=== PATIENT | female | born 1990 | race American Indian/Alaskan Native ===

== ENCOUNTER 2021-09-15 07:35 | Outpatient (CLI) | payer MEDICAID ==
--- NOTE | 2021-09-15 08:55 | Cat Scan Report ---
CT ABDOMEN AND PELVIS WITHOUT CONTRAST HISTORY: HEMATURIA,GROSS R31.0 COMPARISON: None. TECHNIQUE: Axial CT images were obtained through the abdomen and pelvis without IV contrast. Sagittal and coronal reformatted images. All CT scans at this location are performed using CT dose reduction for ALARA by means of automated exposure control. FINDINGS: CT ABDOMEN: Lung Bases: Clear. Liver: No significant abnormality. Biliary: No significant abnormality. Spleen: No significant abnormality. Unenlarged. Pancreas: No significant abnormality. Adrenals: No significant abnormality. Kidneys: Both kidneys are normal size, contour and position. The renal pyramids are slightly hyperden se bilaterally. There appear to be a few scattered punctate renal calyceal stones in both kidneys. No evidence for ureteral stone or hydronephrosis. Ill-defined 1 cm cyst is suspected in the inferior ri ght kidney. No obvious renal mass on noncontrast CT. Lymphatics: No lymphadenopathy. Vasculature: No significant abnormality. Bowel/Peritoneum: No significant abnormality. No free air. No free fluid. CT PELVIS: : There is an ill-defined 1.6 cm hypodensity in the left ovary probably representing a cyst. The ut erus and adnexa are otherwise unremarkable. The bladder is poorly distended but no gross abnormality is detected. Osseous Structures: No significant abnormality. Additional Findings: None IMPRESSION: Punctate bilateral nonobstructing renal stones are identified. No ureteral stone or hydronephrosis. 1.6 cm left ovarian cyst. Signer Name: Jose J Diaz Jr, MD Signed: 09/15/2021 8:50 AM Workstation Name: [id number]
== END 2021-09-15 07:36 | disposition home or self-care (01) ==
LOC: CT 07:35
PROVIDERS: ATTEND Urology
DX: N20.0 Calculus of kidney (principal); N83.202 Unspecified ovarian cyst, left side; R31.0 Gross hematuria
CPT/HCPCS: 74176

== ENCOUNTER 2021-10-27 12:04 | Emergency (ER) | payer MEDICAID ==
[2021-10-27 12:27] VITALS: BP 131/72
[2021-10-27 20:02] LABS: Basophils % (Auto) 0.4 % (0.0-1.8); Eosinophils % (Auto) 0.6 % (0.0-4.3); Hematocrit 36.9 % (30.3-42.9); Hemoglobin 12.3 gm/dl (10.1-14.3); Lymphocytes # (Auto) 1.7 K/mm3 (1.2-5.4); Lymphocytes % (Auto) 24.9 % (13.4-35.0); Mean Corpuscular HGB Conc 33 % (30-34); Mean Corpuscular Volume 89 fl (79-97); Monocytes # (Auto) 0.6 K/mm3 (0.0-0.8); Monocytes % (Auto) 8.8 % (0.0-7.3); Platelet Count 216 K/mm3 (140-440); Red Blood Count 4.17 M/mm3 (3.65-5.03); Red Cell Distribution Width 12.8 % (13.2-15.2)
[2021-10-27 20:08] LABS: Bacteria,Urine 4+ /HPF (Negative); Mucus,Urine FEW /HPF
[2021-10-27 20:20] LABS: Blood Urea Nitrogen 5 mg/dL (7-17); Calcium 9.6 mg/dL (8.4-10.2); Hemolysis Index 5
[2021-10-27 20:21] LABS: Color,Urine Yellow (Yellow)
[2021-10-27 20:24] LABS: BUN/Creatinine Ratio 10
--- NOTE | 2021-10-27 21:12 | Emergency Department Report ---
ED Female HPI - General Chief complaint: Vaginal Bleeding Stated complaint: BLEEDING Time Seen by Provider: 10/27/21 21:02 Source: patient Mode of arrival: Ambulatory Limitations: No Limitations - History of Present Illness MD Complaint: vaginal bleeding, pelvic pain -: week(s) (1 week of bleeding and crmaping off and on. ) Radiation: non-radiating Severity: mild Consistency: constant Improves with: none Worsens with: none Are you Now?: Yes (7 weeks) - Related Data Allergies Allergy/AdvReac Type Severity Reaction Status Date / Time No Known Allergies Allergy Verified 10/27/21 12:27 ED Review of Systems ROS: Stated complaint: BLEEDING Other details as noted in HPI Comment: All other systems reviewed and negative ED Physical Exam - General Limitations: No Limitations General appearance: alert, in no apparent distress - Head Head exam: Present: atraumatic, normocephalic - Eye Eye exam: Present: normal appearance, PERRL, EOMI Pupils: Present: normal accommodation - ENT ENT exam: Present: normal exam, normal orophraynx, mucous membranes moist, TM's normal bilaterally - Neck Neck exam: Present: normal inspection, full ROM - Respiratory Respiratory exam: Present: normal lung sounds bilaterally. Absent: respiratory distress, wheezes, rales, chest wall tenderness, accessory muscle use, decreased breath sounds - Cardiovascular Cardiovascular Exam: Present: regular rate, normal rhythm. Absent: systolic murmur, diastolic murmur, rubs, gallop - GI/Abdominal GI/Abdominal exam: Present: soft, normal bowel sounds. Absent: distended, te nderness, guarding, hyperactive bowel sounds, hypoactive bowel sounds, organomegaly, mass, bruit - Extremities Exam Extremities exam: Present: normal inspection, normal capillary refill - Back Exam Back exam: Present: normal inspection. Absent: CVA tenderness (R), CVA tenderness (L) - Neurological Exam Neurological exam: Present: alert, oriented X3, CN II-XII intact - Psychiatric Psychiatric exam: Present: normal affect, normal mood - Skin Skin exam: Present: warm, dry, intact, normal color. Absent: rash ED Course Vital Signs 10/27/21 12:25 Temperature 97.7 F Pulse Rate 107 H Respiratory 18 Rate Blood Pressure 131/72 [Right] O2 Sat by Pulse 99 Oximetry ED Medical Decision Making - Lab Data Result diagrams: 10/27/21 19:28 10/27/21 19:28 - Radiology Data Radiology results: report reviewed [facility] [address] [place] [address] Ultrasound Report Signed Patient: MAYRA VILLAR MR#: [id number] : 1990 Acct:[id number] Age/Sex: 31 / F ADM Date: 10/27/21 Loc: ED Attending Dr: Ordering Physician: NGUYỄN ALONSO NP Date of Service: 10/27/21 Procedure(s): US OB <= 14 weeks fetus Accession Number(s): [id number] cc: NGUYỄN ALONSO NP ULTRASOUND OBSTETRIC INDICATION / CLINICAL INFORMATION: 7 weeks , pelvic pain, vaginal bleeding. TECHNIQUE: Transabdominal. COMPARISON: None available. FINDINGS: GESTATIONAL SAC: Well-defined oval shape and intrauterine in location. YOLK SAC: No significant abnormality. EMBRYO/FETUS: No significant abnormality. - [place]-Rump Length = 1.21 cm = 7 weeks 3 days - Heart Rate, beats per minute (if present) = 152 UTERUS: There is a hypoechoic lesion along the posterior aspect of the uterus measuring 2.9 x 2.1 x 2.5 cm, possibly representing a uterine fibroid. ADNEXA: Right ovarian cyst measuring 2.1 x 2.0 x 2.0 cm. FREE FLUID: Small volume of free fluid within the cul-de-sac. ADDITIONAL FINDINGS: None. IMPRESSION: 1. Single, living intrauterine with estimated sonographic age of 7 weeks 3 days. 2. Hypoechoic lesion along the posterior aspect of the uterus measuring up to 2.9 cm, possibly representing a fibroid. Signer Name: Charles Montenegro MD Signed: 10/27/2021 9:38 PM Workstation Name: [id number] Transcribed By: Dictated By: CHARLES MONTENEGRO MD Electronically Authenticated By: CHARLES MONTENEGRO MD Signed Date/Time: 10/27/212137 DD/ 33 TD/TT: - Medical Decision Making This patient presents with vaginal bleeding in the first trimester, differential diagnosis includes ectopic , IUP, month threatened/in evitable , along with a completed . Patient is HDS and without a history of coagulopathy or infectious symptoms. The ultrasound does reveal an IUP at 7 weeks with an elevated hCG quant Based on exam history and ED work-up patient presentation is not consistent with an ectopic , life-threatening coagulopathy, trauma, serious bacterial infection, central process or other emergency Critical care attestation.: If time is entered above; I have spent that time in minutes in the direct care of this critically ill patient, excluding procedure time. ED Disposition Clinical Impression: Vaginal bleeding affecting early Disposition: 01 HOME / SELF CARE / HOMELESS Is pt being admited?: No Does the pt Need Aspirin: No Condition: Stable Instructions: Vaginal Bleeding During , First Trimester Additional Instructions: You have been evaluated at the department for vaginal bleeding and ultrasound showed a normal viable with no visible complications. Please be sure to follow-up with your [facility] for further evaluation Referrals: [facility] [Primary Care Provider] - 3-5 Days [facility] [Provider Group] - 3-5 Days
--- NOTE | 2021-10-27 21:42 | Ultrasound Report ---
ULTRASOUND OBSTETRIC INDICATION / CLINICAL INFORMATION: 7 weeks , pelvic pain, vaginal bleeding. TECHNIQUE: Transabdominal. COMPARISON: None available. FINDINGS: GESTATIONAL SAC: Well-defined oval shape and intrauterine in location. YOLK SAC: No significant abnormality. EMBRYO/FETUS: No significant abnormality. - [place]-Rump Length = 1.21 cm = 7 weeks 3 days - Heart Rate, beats per minute (if present) = 152 UTERUS: There is a hypoechoic lesion along the posterior aspect of the uterus measuring 2.9 x 2.1 x 2 .5 cm, possibly representing a uterine fibroid. ADNEXA: Right ovarian cyst measuring 2.1 x 2.0 x 2.0 cm. FREE FLUID: Small volume of free fluid within the cul-de-sac. ADDITIONAL FINDINGS: None. IMPRESSION: 1. Single, living intrauterine with estimated sonographic age of 7 weeks 3 days. 2. Hypoechoic lesion along the posterior aspect of the uterus measuring up to 2.9 cm, possibly repres enting a fibroid. Signer Name: Thong Montenegro MD Signed: 10/27/2021 9:38 PM Workstation Name: [id number]
== END 2021-10-28 00:08 | disposition home or self-care (01) ==
LOC: ED 12:04
DX: O20.8 Other hemorrhage in early pregnancy (principal); Z3A.01 Less than 8 weeks gestation of pregnancy
CPT/HCPCS: 36415; 76801; 80048; 81001; 84702; 85025; 87086; 99284